=== PATIENT | male | born 1995 | race American Indian/Alaskan Native ===

== ENCOUNTER 2019-03-24 16:31 | Emergency (ER) | payer SELFPAY ==
[2019-03-24 16:39] VITALS: BP 105/63
--- NOTE | 2019-03-24 17:05 | Emergency Department Report ---
- General Chief complaint: Skin/Abscess/Foreign Body Stated complaint: BOILON BUTTOCK Time Seen by Provider: 03/24/19 16:52 Source: patient Mode of arrival: Ambulatory Limitations: No Limitations - History of Present Illness MD complaint: abscess/boil -: This morning Location: buttocks Severity: moderate Severity scale (0 -10): 4 Quality: sharp, dull Consistency: constant Context: none Associated symptoms: denies other symptoms - Related Data Allergies Allergy/AdvReac Type Severity Reaction Status Date / Time No Known Allergies Allergy Unverified 03/24/19 16:35 Abscess Boil HPI - HPI Chief Complaint: Skin/Abscess/Foreign Body Stated Complaint: BOILON BUTTOCK Time Seen by Provider: 03/24/19 16:52 Allergies/Adverse Reactions: Allergies Allergy/AdvReac Type Severity Reaction Status Date / Time No Known Allergies Allergy Unverified 03/24/19 16:35 ED Review of Systems ROS: Stated complaint: BOILON BUTTOCK Other details as noted in HPI Comment: All other systems reviewed and negative Constitutional: denies: chills, fever Respiratory: denies: cough, shortness of breath Cardiovascular: denies: chest pain Gastrointestinal: denies: abdominal pain, nausea, vomiting Neurological: denies: headache, weakness ED Past Medical Hx - Past Medical History Previous Medical History?: No - Surgical History Past Surgical History?: No - Social History Smoking Status: Never Smoker Substance Use Type: None ED Physical Exam - General Limitations: No Limitations General appearance: alert, in no apparent distress - Head Head exam: Present: atraumatic, normocephalic - ENT ENT exam: Present: normal exam, normal orophraynx, mucous membranes moist - Neck Neck exam: Present: normal inspection. Absent: tenderness, meningismus - Respiratory Respiratory exam: Present: normal lung sounds bilaterally - Cardiovascular Cardiovascular Exam: Present: regular rate, normal heart sounds - Neurological Exam Neurological exam: Present: alert, oriented X3 - Skin Skin exam: Present: other (2x2 cm swelling to the right buttock, non fluctuant.) ED Course Vital Signs 03/24/19 16:38 Temperature 98.2 F Pulse Rate 86 Respiratory 16 Rate Blood Pressure 105/63 O2 Sat by Pulse 98 Oximetry ED Medical Decision Making - Medical Decision Making Abscess is nonfluctuant. Patient advised to do sitz bath and patient given prescription for Bactrim and pain medication and advised to follow-up with his primary care physician and to return to the ER if symptoms are not improved. Critical care attestation.: If time is entered above; I have spent that time in minutes in the direct care of this critically ill patient, excluding procedure time. ED Disposition Clinical Impression: Abscess Disposition: DC-01 TO HOME OR SELFCARE Is pt being admited?: No Condition: Stable Instructions: Abscess (ED) Referrals: [facility] [Provider Group] - 3-5 Days
== END 2019-03-24 17:24 | disposition home or self-care (01) ==
LOC: ED 16:31
DX: L02.31 Cutaneous abscess of buttock (principal)